=== PATIENT | female | born 1950 | race Caucasian/White ===

== ENCOUNTER 2017-02-10 06:12 | Day surgery (SDC) | payer OTHER, BC ==
[2017-02-08 12:16] VITALS: BMI 21.3
[2017-02-10] MEDS ORDERED: ROPIVACAINE HCL 0.5% 30ML VIAL ONE (06:45)
[2017-02-10] MEDS ORDERED: DEXAMETHASONE SOD PHOSPHATE/PF 10 MG/ML SDV ONE (06:45)
[2017-02-10] MEDS ORDERED: MIDAZOLAM HCL 2 MG/2 ML SINGLE DOSE VIAL ONE (06:45)
[2017-02-10] MEDS ORDERED: PROPOFOL 20 ML ONE ×2 (06:59→07:05)
[2017-02-10] MEDS ORDERED: LIDOCAINE HCL/PF 2% SDV 5ML VIAL ONE (06:59)
[2017-02-10] MEDS ORDERED: SUCCINYLCHOLINE CHLORIDE 200 MG/10 ML VIAL ONE (07:00)
[2017-02-10] MEDS ORDERED: ROCURONIUM BROMIDE 50 MG/5 ML VIAL ONE (07:00)
[2017-02-10] MEDS ORDERED: SCOPOLAMINE HYDROBROMIDE 1 PATCH PATCH.TD72 ONE (07:34)
[2017-02-10] MEDS ORDERED: ePHEDrine SULFATE 50 MG/1 ML AMPULE ONE (07:59)
[2017-02-10] MEDS ORDERED: ceFAZolin SODIUM 1 GM VIAL ONE (07:59)
[2017-02-10] MEDS ORDERED: DEXAMETHASONE SOD PHOSPHATE 4 MG/1 ML VIAL ONE ×2 (08:04→08:14)
[2017-02-10] MEDS ORDERED: ONDANSETRON 4 MG/2 ML VIAL ONE ×2 (08:04→08:14)
[2017-02-10] MEDS ORDERED: KETOROLAC TROMETHAMINE 30 MG/1 ML VIAL ONE ×2 (08:14→08:15)
[2017-02-10] MEDS ORDERED: GUM MASTIC/STORAX/MSAL/ALCOHOL 1 DRP DROPSBTL MC ONE (08:38)
[2017-02-10] MEDS ORDERED: BUPIVACAINE HCL/PF 2.5 MG/ML - 30 ML VIAL IJ ONE (08:38)
[2017-02-10] MEDS ORDERED: BUPIVACAINE HCL/PF 0.25% (2.5MG/ML) 10 ML VIAL IJ ONE (08:44)
[2017-02-10] MEDS ORDERED: LACTATED RINGERS SOLUTION 1,000 ML IV SCH (09:45)
[2017-02-10] MEDS ORDERED: ONDANSETRON 4 MG/2 ML VIAL IVPUSH PRN (10:11)
[2017-02-10] MEDS ORDERED: oxyCODONE HCL 5 MG TABLET PO PRN ×2 (10:11→10:12)
[2017-02-10] MEDS ORDERED: ACETAMINOPHEN 325 MG TABLET (FP) PO PRN (10:14)
[2017-02-10] MEDS ORDERED: HYDROmorphone HCL CARPU-JECT 1 MG/1 ML DISP.SYRIN IVPUSH ONE (10:45)
[2017-02-10] MEDS ORDERED: oxyCODONE HCL 5 MG TABLET ONE (11:47)
[2017-02-10 12:48] VITALS: PULSE 78
[2017-02-10 13:33] VITALS: BP 133/78; TEMP 98.1
--- NOTE | 2017-02-11 14:10 | OP ---
DATE OF OPERATION: 02/10/2017 PREOPERATIVE DIAGNOSIS: Left comminuted intraarticular displaced distal radius fracture. POSTOPERATIVE DIAGNOSIS: Left comminuted intraarticular displaced distal radius fracture. OPERATIVE PROCEDURE: 1. Open reduction internal fixation of left comminuted intraarticular displaced distal radius fracture with internal fixation of 3 or more fragments. 2. Left brachioradialis tenotomy. SURGEON: Cruz Martin MD DOUBLE NEEDLE OPERATOR: OC Victor ANESTHESIA: General. COMPLICATIONS: None. ESTIMATED BLOOD LOSS: Minimal. INDICATIONS FOR PROCEDURE: The patient is a 66-year-old female with the above findings, indicated for operative treatment. The risks, benefits, and alternatives were discussed with the patient at length, and proper informed consent was obtained. DESCRIPTION OF PROCEDURE: After proper identification of the patient and the correct operative site, the patient was brought to the operating room and placed supine on the operating table with prominences well padded. General anesthesia was provided by the anesthesiologist. Intravenous antibiotics were given. Time-out procedure was performed. Left upper extremity was prepped and draped in the usual sterile fashion. Well-padded tourniquet was placed with a sterile prep, Esmarch bandage to exsanguinate the left upper extremity, and tourniquet inflated to 250 mmHg. A longitudinal incision was made over the flexor carpi radialis tendon distally. The incision was taken sharply through the skin with blunt and sharp dissection through subcutaneous tissues. Flexor carpi radialis tendon along with the contents of the carpal canal was bluntly and gently retracted in an ulnarward direction for the remainder of the procedure. The pronator quadratus was divided and elevated off the distal radius. Fracture fragments were attempted to be reduced. However, the pull of the brachioradialis did not make this possible. Therefore, a subperiosteal brachioradialis tenotomy was performed, which released the radial styloid fragment and fracture fragments were able to be reduced. The fracture was then repaired using the Acumed Acu-Loc 2 distal radius plate secured distally with locking screws and proximally with nonlocking screws. This provided secure stable fixation of the fracture. Radiographs were taken to confirm proper reduction and placement of all hardware. Scapholunate interval and distal radioulnar joint were stressed and found to be stable. Wound was irrigated with copious amounts of normal saline and repaired in layers including the pronator quadratus with 4-0 Vicryl and 4-0 Monocryl. Steri-Strips and sterile dressings were placed. The patient was reversed from anesthesia and brought to the recovery room in stable condition. She tolerated the procedure well. Galileo Quarles, the assistant basketball coach, was integral throughout this procedure. This procedure could not have been performed without a skilled operative assistant basketball coach. CRUZ MARTIN M.D. PRINCE/[id number]
== END 2017-02-10 13:39 | disposition home or self-care (01) ==
LOC: FASU 06:12
PROVIDERS: ATTEND Orthopaedic Surgery Hand Surgery
PROC: 0LN60ZZ Release Left Lower Arm and Wrist Tendon, Open Approach (ICD-10-PCS; 2017-02-10)
PROC: 0PSJ04Z Reposition Left Radius with Internal Fixation Device, Open Approach (ICD-10-PCS; principal; 2017-02-10 08:04)
DX: S52.532A Colles' fracture of left radius, initial encounter for closed fracture (principal); X58.XXXA Exposure to other specified factors, initial encounter; Y93.9 Activity, unspecified; Y92.9 Unspecified place or not applicable
CPT/HCPCS: 73110-TC-LT; 94760

== ENCOUNTER 2017-02-12 18:37 | Emergency (ER) | payer OTHER, BC ==
[2017-02-12 18:46] VITALS: BP 136/84; PULSE 60; TEMP 98.4; BMI 21.3
--- NOTE | 2017-02-12 18:56 | PDOC ---
History of Present Illness - General History Source: Patient Exam Limitations: No Limitations - History of Present Illness Initial Comments: 02/12/17 19:12 The patient is a 66 year old female, with significant past medical history of left wrist surgery on 02/10/[address] Mckenzie, who presents today complaining of bleeding to the incision site of the left wrist starting approximately 30 minutes prior to arrival to the emergency room. The patient states that she felt increased pressure and sudden pain to the incision site of the wrist, then noticed blood through the cast. She is not experiencing pain at this time. She notes that her middle finger is stiff and numb. Denies any recent trauma to the wrist. Denies tingling in the fingers. Denies fever, chills, nausea, vomiting. Allergies: none reported Past medical hx: HLD, HTN, [place] (2009), CAD, CHF Orthopedist: Dr. Mckenzie <Rosio Naranjo - Last Filed: 02/12/17 19:13> <Shawn Villa - Last Filed: 02/12/17 19:59> - General Chief Complaint: Pain, Acute Stated Complaint: LEFT ARM PAIN/BLEEDING Time Seen by Provider: 02/12/17 18:46 Past History <Rosio Naranjo - Last Filed: 02/12/17 19:13> - Past Medical History Anemia: No Asthma: No Cancer: No Cardiac Disorders: Yes (Hx of [place] 2009,CAD) CVA: No COPD: No CHF: Yes Dementia: No Diabetes: No GI Disorders: No Disorders: No HTN: Yes Hypercholesterolemia: Yes Liver Disease: No Seizures: No Thyroid Disease: No - Surgical History Abdominal Surgery: No Appendectomy: Yes Cardiac Surgery: No (Angioplasty with Stents) Cholecystectomy: No Lung Surgery: No Neurologic Surgery: No Orthopedic Surgery: No - Psycho/Social/Smoking Cessation Hx Anxiety: No Suicidal Ideation: No Smoking History: Current some day smoker Number of Cigarettes Smoked Daily: 1 Information on smoking cessation initiated: Yes 'Breaking Loose' booklet given: 02/12/17 Hx Alcohol Use: No Drug/Substance Use Hx: No Substance Use Type: None Hx Substance Use Treatment: No <Shawn Villa - Last Filed: 02/12/17 19:59> - Past Medical History Allergies/Adverse Reactions: Allergies Allergy/AdvReac Type Severity Reaction Status Date / Time No Known Allergies Allergy Verified 02/12/17 18:38 Home Medications: Ambulatory Orders Aspirin [Ecotrin] 325 mg PO DAILY 02/08/17 Atorvastatin Ca [Lipitor] 80 mg PO HS 02/08/17 Bupropion HCl [Wellbutrin -] 300 mg PO DAILY 02/08/17 Clopidogrel Bisulfate [Plavix -] 75 mg PO DAILY 02/08/17 Escitalopram Oxalate [Lexapro -] 20 mg PO DAILY 02/08/17 Ezetimibe [Zetia] 10 mg PO DAILY 02/08/17 Lisinopril 10 mg PO DAILY 02/08/17 Metoprolol Succinate [Toprol Xl] 50 mg PO DAILY 02/08/17 Spironolactone [Aldactone -] 25 mg PO DAILY 02/08/17 Triazolam 0.5 mg PO HS 02/08/17 Review of Systems - Review of Systems Able to Perform ROS?: Yes Comments:: 02/12/17 19:12 CONSTITUTIONAL: Absent: fever, chills, diaphoresis, generalized weakness, malaise, loss of appetite HEENT: Absent: rhinorrhea, nasal congestion, throat pain, throat swelling, difficulty swallowing, mouth swelling, ear pain, eye pain, visual Changes CARDIOVASCULAR: Absent: chest pain, syncope, palpitations, irregular heart rate, lightheadedness , peripheral edema RESPIRATORY: Absent: cough, shortness of breath, dyspnea with exertion, orthopnea, wheezing, stridor, hemoptysis GASTROINTESTINAL: Absent: abdominal pain, abdominal distension, nausea, vomiting, diarrhea, constipation, melena, hematochezia GENITOURINARY: Absent: dysuria, frequency, urgency, hesitancy, hematuria, flank pain, genital pain MUSCULOSKELETAL: Absent: myalgia, arthralgia, joint swelling SKIN: Present: bleeding from the surgical incision site on the left wrist Absent: rash, itching, pallor HEMATOLOGIC/IMMUNOLOGIC: Absent: easy bleeding, easy bruising, lymphadenopathy, frequent infections ENDOCRINE: Absent: unexplained weight gain, unexplained weight loss, heat intolerance, cold intolerance NEUROLOGIC: Absent: headache, focal weakness or paresthesias, dizziness, unsteady gait, seizure, mental status changes, bladder or bowel incontinence PSYCHIATRIC: Absent: anxiety, depression, suicidal or homicidal ideation, hallucinations. <Rosio Naranjo - Last Filed: 02/12/17 19:13> *Physical Exam - Vital Signs Last Vital Signs Temp Pulse Resp BP Pulse Ox 98.4 F 60 18 136/84 97 02/12/17 18:38 02/12/17 18:38 02/12/17 18:38 02/12/17 18:38 02/12/17 18:38 <Rosio Naranjo - Last Filed: 02/12/17 19:13> - Vital Signs Last Vital Signs Temp Pulse Resp BP Pulse Ox 98.4 F 60 18 136/84 97 02/12/17 18:38 02/12/17 18:38 02/12/17 18:38 02/12/17 18:38 02/12/17 18:38 <Shawn Villa - Last Filed: 02/12/17 19:59> Medical Decision Making - Medical Decision Making 02/12/17 18:57 Patient had ORIF of the left wrist on Wednesday by Dr. Mckenzie. She had mild pain and numbness of the second and third finger after the operation, which persisted. 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 The pain has since subsided. The bleeding has seemed to have subsided. A volar splint wrapped with an Sylvester bandage and cast padding was removed. There was considerable dried blood on the apparatus. The wound itself was clean and dry except for a dehiscence of approximately 2 cm at the distal end of the incision, with a small clot at the opening. This was removed under sterile conditions and there was no persistent bleeding. The patient's pain, as noted above, has resolved. Most likely there was a hematoma which broke through the skin, drained, and the pressure was relieved. Awaiting x-ray to check the position of the hardware and alignment of the bone. Patient is in no discomfort , does not need any additional analgesics. 02/12/17 19:56 X-ray shows good position, alignment, and no disruption of the hardware. The patient's pain is resolved. Please resolved. A volar splint was reapplied with a sterile dressing beneath. Wrapped with an Sylvester bandage. The patient had no discomfort after splinting. There was good sensation maintained in the digits, good digit motion, no tingling and no pain in the fingers. Discharged to follow-up with Dr. Dubose that his next office hours or return to the emergency room if bleeding or pain recur. <Shawn Villa - Last Filed: 02/12/17 19:59> *DC/Admit/Observation/Transfer - Attestations Scribe Attestion: 02/12/17 19:12 Documentation prepared by JANNETH Neumann, acting as medical dir for Shawn Villa MD. <Rosio Naranjo - Last Filed: 02/12/17 19:13> - Discharge Dispostion Admit: No <Shawn Villa - Last Filed: 02/12/17 19:59> Diagnosis at time of Disposition: Traumatic hematoma of forearm Qualifiers: Encounter type: initial encounter Laterality: left Qualified Code(s): S50.12XA - Contusion of left forearm, initial encounter - Discharge Dispostion Disposition: HOME Condition at time of disposition: Improved - Patient Instructions Additional Instructions: Elevate the arm as much as possible. Pain medication as needed. If bleeding recurs and is uncontrolled, return to the emergency room. Otherwise see orthopedist for recheck as soon as possible.
== END 2017-02-12 20:13 | disposition home or self-care (01) ==
LOC: FER 18:37
PROC: 2W3FX1Z Immobilization of Left Hand using Splint (ICD-10-PCS; principal; 2017-02-12)
DX: S50.12XA Contusion of left forearm, initial encounter (principal); X58.XXXA Exposure to other specified factors, initial encounter; Y93.89 Activity, other specified; Y92.9 Unspecified place or not applicable; I10 Essential (primary) hypertension; I50.9 Heart failure, unspecified; E78.00 Pure hypercholesterolemia, unspecified; F17.210 Nicotine dependence, cigarettes, uncomplicated
CPT/HCPCS: 29125; 73110-TC-LT; 99281-25

== ENCOUNTER 2018-09-06 21:40 | Observation (INO) | payer BC, OTHER ==
--- NOTE | 2018-09-06 21:45 | PDOC ---
History of Present Illness - General History Source: Patient, Old Records Exam Limitations: No Limitations - History of Present Illness Initial Comments: 09/06/18 22:17 The patient is a 67 year old female, with a significant past medical history of CAD, [place] (2009) s/p cardiac stents (5), CHF, HTN and HLD, who presents to the ED complaining of "pain in her esophagus" after waking morning. She notes that her symptoms began today with the pain in her anterior neck. She called her PMD who prescribed her a Z-Pack, which she took 1 dose (2 pills). She notes that her pain is radiating to her neck and down her chest. She describes her chest pain as a pressure sensation. She reports that taking deep breath exacerbates the pain. She notes that when she had an CO in 2009 she didn't have pain. The patient's last stress test was 2016, which was normal. She notes that initially she had 4 stents placed and then had an additional one placed. She also reports 5 episodes of watery stool today and a mild headache that has persisted. The patient denies shortness of breath, dizziness, fever, chills, nausea, vomiting, constipation. Denies dysuria, frequency, urgency and hematuria. Allergies: None Past surgical history: Angioplasty with Stents, Appendectomy Social History: Smoker (4-5 daily). No alcohol or drug use reported PMD: Dr. Tinajero <Jorge Roca - Last Filed: 09/06/18 22:28> <Kristen Cordero - Last Filed: 09/07/18 00:06> - General Chief Complaint: Pain Stated Complaint: PAIN IN ESPOHAGUS SINCE THIS AM Time Seen by Provider: 09/06/18 21:45 Past History <Jorge Roca - Last Filed: 09/06/18 22:28> - Past Medical History Anemia: No Asthma: No Cancer: No Cardiac Disorders: Yes (Hx of CO 2010,CAD) CVA: No COPD: No CHF: Yes Dementia: No Diabetes: No GI Disorders: No Disorders: No HTN: Yes Hypercholesterolemia: Yes Liver Disease: No Seizures: No Thyroid Disease: No - Surgical History Abdominal Surgery: No Appendectomy: Yes Cardiac Surgery: No (Angioplasty with Stents) Cholecystectomy: No Lung Surgery: No Neurologic Surgery: No Orthopedic Surgery: No - Suicide/Smoking/Psychosocial Hx Smoking History: Current some day smoker Number of Cigarettes Smoked Daily: 1 'Breaking Loose' booklet given: 02/12/17 Hx Alcohol Use: No Drug/Substance Use Hx: No Substance Use Type: None Hx Substance Use Treatment: No <Kristen Cordero - Last Filed: 09/07/18 00:06> - Past Medical History Allergies/Adverse Reactions: Allergies Allergy/AdvReac Type Severity Reaction Status Date / Time No Known Allergies Allergy Verified 09/06/18 21:43 Home Medications: Ambulatory Orders Aspirin [Ecotrin] 325 mg PO DAILY 02/08/17 Atorvastatin Ca [Lipitor] 80 mg PO HS 02/08/17 Bupropion HCl [Wellbutrin -] 300 mg PO DAILY 02/08/17 Clopidogrel Bisulfate [Plavix -] 75 mg PO DAILY 02/08/17 Escitalopram Oxalate [Lexapro -] 20 mg PO DAILY 02/08/17 Ezetimibe [Zetia] 10 mg PO DAILY 02/08/17 Lisinopril 10 mg PO DAILY 02/08/17 Metoprolol Succinate [Toprol Xl] 50 mg PO DAILY 02/08/17 Spironolactone [Aldactone -] 25 mg PO DAILY 02/08/17 Triazolam 0.5 mg PO HS 02/08/17 Review of Systems - Review of Systems Able to Perform ROS?: Yes Comments:: 09/06/18 22:17 GENERAL/CONSTITUTIONAL: No fever or chills. No weakness. HEAD, EYES, EARS, NOSE AND THROAT: (+) Throat pain. No change in vision. No ear pain or discharge. GASTROINTESTINAL: (+) Diarrhea. No nausea, vomiting, or constipation. GENITOURINARY: No dysuria, frequency, or change in urination. CARDIOVASCULAR: (+) Chest pain. No shortness of breath. RESPIRATORY: No cough, wheezing, or hemoptysis. MUSCULOSKELETAL: No joint or muscle swelling or pain. No neck or back pain. SKIN: No rash NEUROLOGIC: (+) Headache. No vertigo, loss of consciousness, or change in strength/sensation. ENDOCRINE: No increased thirst. No abnormal weight change. HEMATOLOGIC/LYMPHATIC: No anemia, easy bleeding, or history of blood clots. ALLERGIC/IMMUNOLOGIC: No hives or skin allergy. <Jorge Roca - Last Filed: 09/06/18 22:28> *Physical Exam - Vital Signs Last Vital Signs Temp Pulse Resp BP Pulse Ox 98 F 66 16 132/71 100 09/06/18 22:02 09/06/18 22:02 09/06/18 22:02 09/06/18 22:02 09/06/18 22:02 - Physical Exam Comments: 09/06/18 22:17 Constitutional: Awake, alert, oriented. No acute distress. Head: Normocephalic. Atraumatic Eyes: PERRL. EOMI. Conjunctivae are not pale. ENT: Mucous membranes are moist and intact. Posterior pharynx without exudates or erythema. Uvula midline. Neck: Supple. Full ROM. No lymphadenopathy. Cardiovascular: Regular rate. Regular rhythm. S1, S2 regular. Distal pulses are 2+ and symmetric. Pulmonary/Chest: (+) Bilaterally expiratory crackles. No evidence of respiratory distress. No wheezing. Abdominal: Soft and non-distended. There is no tenderness. No rebound, guarding or rigidity. No organomegaly. No palpable masses. Good bowel sounds. Back: No CVA tenderness. Musculoskeletal: No edema. No cyanosis. No clubbing. Full range of motion in all extremities. Nocalf tenderness. Radial/pedal pulses are intact and 2+ bilaterally Skin: Skin is warm and dry. No petechiae. No purpura. Neurological: Alert and oriented to person, place, and time. Cranial nerves II -XII are grossly intact. Normal speech. Strength is grossly symmetric. No sensory deficits. Psychiatric: Good eye contact. Normal interaction, affect and behavior. <Jorge Roca - Last Filed: 09/06/18 22:28> Moderate Sedation - Procedure Monitoring Vital Signs: Procedure Monitoring Vital Signs Temperature 98 F 09/06/18 22:02 Pulse Rate 66 09/06/18 22:02 Respiratory Rate 16 09/06/18 22:02 Blood Pressure 132/71 09/06/18 22:02 O2 Sat by Pulse Oximetry (%) 100 09/06/18 22:02 <Jorge Roca - Last Filed: 09/06/18 22:28> Heart Score/ECG Review - History History: Moderately suspicious - Electrocardiogram EKG: Non specific repolarization disturbance - Age Age: >/= 65 - Risk Factors Risk Factors Heart Score: Yes Hx Hypercholesterolemia, Yes Hx Hypertension, Yes Smoking History, Yes Positive family hx of cardiac disease Based on the list above the patient has:: >/=3 risk factors or Hx atherosclerotic disease - Troponin Troponin: </= normal limit - Score Heart Score - Total: 6 <Kristen Cordero - Last Filed: 09/07/18 00:06> ED Treatment Course - LABORATORY CBC & Chemistry Diagram: 09/06/18 21:55 09/06/18 21:55 - ADDITIONAL ORDERS Additional order review: 09/06/18 21:55 RBC 3.70 MCV 98.3 H MCHC 32.3 RDW 13.1 MPV 9.0 Neutrophils % 75.9 Lymphocytes % 13.7 Monocytes % 7.8 Eosinophils % 2.1 Basophils % 0.5 <Jorge Roca - Last Filed: 09/06/18 22:28> - LABORATORY CBC & Chemistry Diagram: 09/06/18 21:55 09/06/18 21:55 <Kristen Cordero - Last Filed: 09/07/18 00:06> Medical Decision Making - Medical Decision Making Documentation has been prepared under my direction and personally reviewed by me in its entirety. I attest that this documented accurately reflects all work, treatment, procedures and medical decision making performed by me. As noted above, this 67-year-old woman with a history of CO in 2009(4 stents placed) and subsequent second episode of ACS and stent placement presents with 1 day history of anterior neck pain with radiation to the anterior chest in the last few hours(pressure sensation). Patient has been followed by cardiology group in the [place]. Pain worsens with deep breathing but no sense of shortness of breath/nausea/diaphoresis. Exam as noted. 12-lead EKG is performed and interpreted by me: Sinus bradycardia at 59 bpm; axis and intervals are normal. There is some minor depressions of ST segments in V5/V6; no other waveform abnormalities. No previous EKG tracing is available for comparison Portable chest x-ray shows mild cardiomegaly; no other significant acute process evident Patient was given 0.4 mg nitroglycerin SL. She subsequently had some improvement in her neck pain although the chest pressure continued. Troponin is less than 0.03.There is evidence of some prerenal azotemia with Bun26/Cre1.2 Because of patient's multiple risk factors for coronary artery disease/ACS, admission for further evaluation of chest pain, specifically ruling out ischemia /infarct is required. [facility] hospitalist service contacted Case discussed with of [facility] hospitalist service. Patient will be admitted to telemetry here to rule out CO Cardiology group on-call contacted: Case discussed with who will see the patient in the morning. <Kristen Cordero - Last Filed: 09/07/18 00:06> *DC/Admit/Observation/Transfer - Attestations Scribe Attestion: 09/06/18 22:18 Documentation prepared by Jorge Roca, acting as medical care manager for Kristen Cordero MD <Jorge Roca - Last Filed: 09/06/18 22:28> - Discharge Dispostion Decision to Admit order: Yes <Kristen Cordero - Last Filed: 09/07/18 00:06> Diagnosis at time of Disposition: Chest pain Qualifiers: Chest pain type: unspecified Qualified Code(s): R07.9 - Chest pain, unspecified - Discharge Dispostion Condition at time of disposition: Stable
[2018-09-06 22:10] LABS: BASO % 0.5 % (0-2.0); EOS % 2.1 % (0-4.5); HEMATOCRIT 36.4 % (32.4-45.2); HEMOGLOBIN 11.8 GM/dl (10.7-15.3); LYMPH % 13.7 % (8-40); MCH 31.8 pg (25.7-33.7); MCHC 32.3 g/dl (32.0-36.0); MEAN CELL VOLUME 98.3 fl (80-96); MONO % 7.8 % (3.8-10.2); NEUT % 75.9 % (42.8-82.8); PLATELET COUNT 194 K/MM3 (134-434); RDW 13.1 % (11.6-15.6); WHITE BLOOD COUNT 11.2 K/mm3 (4.0-10.8)
[2018-09-06 22:23] LABS: ALBUMIN 3.6 g/dl (3.5-5.0); ALK PHOS 50 U/L (32-92); ANION GAP 4 MMOL/L (8-16); BILIRUBIN,TOTAL 0.3 mg/dl (0.2-1.0); BLOOD UREA NITROGEN 26 mg/dl (7-18); CALCIUM 8.5 mg/dl (8.4-10.2); CHLORIDE 105 mmol/L (98-107); CO2 26 mmol/L (22-28); CREATININE 1.2 mg/dl (0.6-1.3); GLUCOSE,RANDOM 119 mg/dl (74-106); SGOT/AST 27 U/L (10-42); SGPT/ALT 20 U/L (10-40); SODIUM 135 mmol/L (136-145); TOT PROT 5.9 g/dl (6.4-8.3)
[2018-09-06] MEDS ORDERED: NITROGLYCERIN SUBLINGUAL 1/150 0.4 MG TAB SL ONE ×2 (22:25→23:28)
[2018-09-06] MEDS ORDERED: NITROGLYCERIN SUBLINGUAL 1/150 0.4 MG TAB ONE ×2 (22:30→23:35)
--- NOTE | 2018-09-07 00:56 | HP ---
CHIEF COMPLAINT: neck pain and chest pressure PCP: Dr. Tinajero HISTORY OF PRESENT ILLNESS: 67 year old female, with a significant past medical history of CAD, [place] (2010) s/ p cardiac stents (5), CHF, HTN and HLD, presented c/o pain in neck which started after she woke on 12/4 in the am. Shortly after, she experienced chest pressure which she rated 6/10 with no associated radiated. No alleviating factors. Minimal relief after nitroglycerin. Worse after deep breathing. Denied significant fever or chills. She usually gets around her house ok and able to perform her ADLs. ER course was notable for: (1) EKG (2) (3) Recent Travel: no PAST MEDICAL HISTORY: CAD, [place] (2010) s/p cardiac stents (5), CHF, HTN and HLD PAST SURGICAL HISTORY: none Social History: Smoking: current smoker Alcohol: no Drugs: no Family History: father with [place] at age 43 Allergies No Known Allergies Allergy (Verified 09/06/18 21:43) HOME MEDICATIONS: Home Medications Medication Instructions Recorded Aspirin [Ecotrin] 325 mg PO DAILY 02/08/17 Atorvastatin Ca [Lipitor] 80 mg PO HS 02/08/17 Bupropion HCl [Wellbutrin -] 300 mg PO DAILY 02/08/17 Clopidogrel Bisulfate [Plavix -] 75 mg PO DAILY 02/08/17 Escitalopram Oxalate [Lexapro -] 20 mg PO DAILY 02/08/17 Ezetimibe [Zetia] 10 mg PO DAILY 02/08/17 Lisinopril 10 mg PO DAILY 02/08/17 Metoprolol Succinate [Toprol Xl] 50 mg PO DAILY 02/08/17 Spironolactone [Aldactone -] 25 mg PO DAILY 02/08/17 Triazolam 0.5 mg PO HS 02/08/17 REVIEW OF SYSTEMS CONSTITUTIONAL: Absent: fever, chills, diaphoresis, generalized weakness, malaise, loss of appetite, weight change HEENT: Absent: rhinorrhea, nasal congestion, throat pain, throat swelling, difficulty swallowing, mouth swelling, ear pain, eye pain, visual changes Present- neck pain CARDIOVASCULAR: Absent: syncope, palpitations, irregular heart rate, lightheadedness, peripheral edema Present- chest pain, RESPIRATORY: Absent: cough, shortness of breath, dyspnea with exertion, orthopnea, wheezing, stridor, hemoptysis GASTROINTESTINAL: Absent: abdominal pain, abdominal distension, nausea, vomiting, diarrhea, constipation, melena, hematochezia GENITOURINARY: Absent: dysuria, frequency, urgency, hesitancy, hematuria, flank pain, genital pain MUSCULOSKELETAL: Absent: myalgia, arthralgia, joint swelling, back pain, neck pain SKIN: Absent: rash, itching, pallor HEMATOLOGIC/IMMUNOLOGIC: Absent: easy bleeding, easy bruising, lymphadenopathy, frequent infections ENDOCRINE: Absent: unexplained weight gain, unexplained weight loss, heat intolerance, cold intolerance NEUROLOGIC: Absent: focal weakness or paresthesias, dizziness, unsteady gait, seizure, mental status changes, bladder or bowel incontinence Present- headache, PSYCHIATRIC: Absent: anxiety, depression, suicidal or homicidal ideation, hallucinations. PHYSICAL EXAMINATION Vital Signs - 24 hr 09/06/18 09/06/18 22:02 23:33 Temperature 98 F Pulse Rate 66 Pulse Rate [ 68 Left] Respiratory 16 16 Rate Blood Pressure 132/71 Blood Pressure 143/83 [Right] O2 Sat by Pulse 100 97 Oximetry (%) GENERAL: Awake, alert, and fully oriented, in no acute distress. HEAD: Normal with no signs of trauma. EYES: Pupils equal, round and reactive to light, extraocular movements intact, sclera anicteric, conjunctiva clear. No lid lag. EARS, NOSE, THROAT: Ears normal, nares patent, oropharynx clear without exudates. Moist mucous membranes. NECK: Normal range of motion, supple without lymphadenopathy, JVD, or masses. LUNGS: Breath sounds equal, clear to auscultation bilaterally. No wheezes, faint bibasilar crackles noted HEART: Regular rate and rhythm, normal S1 and S2 without murmur, rub or gallop. ABDOMEN: Soft, nontender, not distended, normoactive bowel sounds, no guarding, no rebound, no masses. No hepatomegaly or splenomegaly. MUSCULOSKELETAL: Normal range of motion at all joints. No bony deformities or tenderness. No CVA tenderness. UPPER EXTREMITIES: 2+ pulses, warm, well-perfused. No cyanosis. No clubbing. No peripheral edema. LOWER EXTREMITIES: 2+ pulses, warm, well-perfused. No calf tenderness. No peripheral edema. PSYCHIATRIC: Cooperative. Good eye contact. Appropriate mood and affect. SKIN: Warm, dry, normal turgor, no rashes or lesions noted, normal capillary refill. Laboratory Results - last 24 hr 09/06/18 09/06/18 09/06/18 21:55 21:55 21:55 WBC 11.2 H RBC 3.70 Hgb 11.8 Hct 36.4 MCV 98.3 H MCH 31.8 MCHC 32.3 RDW 13.1 Plt Count 194 MPV 9.0 Absolute Neuts (auto) 8.5 Neutrophils % 75.9 Lymphocytes % 13.7 Monocytes % 7.8 Eosinophils % 2.1 Basophils % 0.5 Sodium 135 L Potassium 4.0 Chloride 105 Carbon Dioxide 26 Anion Gap 4 L BUN 26 H Creatinine 1.2 Creat Clearance w eGFR 44.54 Random Glucose 119 H Calcium 8.5 Total Bilirubin 0.3 AST 27 ALT 20 Alkaline Phosphatase 50 Creatine Kinase 53 Troponin I < 0.03 Total Protein 5.9 L Albumin 3.6 EKG reviewed- sinus bradycardia, no signs of acute ischemia cxr -reviewed ASSESSMENT/PLAN: #Chest pain in high risk patient given Hx of smoking, + past ACS, history of smoking. Might be unstable angina as patient was awoken at night with symptoms. -tele/observation -c/w ASA 325mg po daily, clopidogrel 75mgpo daily -high dose statin -bblocker -jennifer i -NGL SL prn if angina -supplemental oxygen -trend troponin -monitor and storage bin tender -smoking cessation -cardiology evaluation -consider echo #headache -naproxen #Diet -2g Na diet #dvt prophylaxis- -heparin sc Visit type - Emergency Visit Emergency Visit: Yes ED Registration Date: 09/07/18 Care time: The patient presented to the Emergency Department on the above date and was hospitalized for further evaluation of their emergent condition. - New Patient This patient is new to me today: Yes Date on this admission: 09/07/18 - Critical Care Critical Care patient: No
[2018-09-07] MEDS ORDERED: NITROGLYCERIN SUBLINGUAL 1/200 0.3 MG BTL SL PRN (00:58)
[2018-09-07] MEDS ORDERED: NAPROXEN 500 MG TABLET (FP) PO ONE (00:58)
[2018-09-07] MEDS ORDERED: NITROGLYCERIN SUBLINGUAL 1/150 0.4 MG TAB SL PRN (01:26)
[2018-09-07 01:34] VITALS: BMI 20.3
[2018-09-07 07:53] LABS: HEMATOCRIT 37.9 % (32.4-45.2); HEMOGLOBIN 12.4 GM/dl (10.7-15.3); MCH 32.1 pg (25.7-33.7); MCHC 32.7 g/dl (32.0-36.0); MEAN CELL VOLUME 97.9 fl (80-96); PLATELET COUNT 191 K/MM3 (134-434); RBC 3.87 M/mm3 (3.60-5.2); RDW 12.8 % (11.6-15.6); WHITE BLOOD COUNT 12.1 K/mm3 (4.0-10.8)
[2018-09-07 08:24] LABS: ANION GAP 10 MMOL/L (8-16); BLOOD UREA NITROGEN 20 mg/dl (7-18); CALCIUM 8.8 mg/dl (8.4-10.2); CHLORIDE 101 mmol/L (98-107); CO2 24 mmol/L (22-28); CREATININE 1.1 mg/dl (0.6-1.3); GLUCOSE,RANDOM 108 mg/dl (74-106); MAGNESIUM 1.7 mg/dL (1.8-2.4); POTASSIUM 4.1 mmol/L (3.5-5.1); SODIUM 135 mmol/L (136-145)
[2018-09-07] MEDS ORDERED: SPIRONOLACTONE 25 MG TABLET (FP) PO SCH (10:00)
[2018-09-07] MEDS ORDERED: CLOPIDOGREL BISULFATE 75 MG TABLET (FP) PO SCH (10:00)
[2018-09-07] MEDS ORDERED: ESCITALOPRAM OXALATE 20 MG TABLET (FP) PO SCH (10:00)
[2018-09-07] MEDS ORDERED: EZETIMIBE 10 MG TABLET (FP) PO SCH (10:00)
[2018-09-07] MEDS ORDERED: LISINOPRIL 10 MG TABLET (FP) PO SCH (10:00)
[2018-09-07] MEDS ORDERED: HEPARIN NA (PORCINE) 5,000 UNITS/ML 1ML VIAL SQ SCH (10:00)
[2018-09-07] MEDS ORDERED: ASPIRIN 325 MG TABLET PO SCH (10:00)
--- NOTE | 2018-09-07 10:14 | EKG ---
Test Reason : Blood Pressure : / mmHG Vent. Rate : 059 BPM Atrial Rate : 059 BPM P-R Int : 164 ms QRS Dur : 102 ms QT Int : 462 ms P-R-T Axes : 056 -08 -21 degrees QTc Int : 457 ms SINUS BRADYCARDIA POSSIBLE LEFT ATRIAL ENLARGEMENT NONSPECIFIC ST AND T WAVE ABNORMALITY ABNORMAL ECG NO PREVIOUS ECGS AVAILABLE Confirmed by WOODY FELIZ MD ([id number]) on 09/07/2018 10:14:03 AM Referred By: DR BEEBE Confirmed By:WOODY FELIZ MD
--- NOTE | 2018-09-07 10:16 | CON.CARD ---
Consult - History of Present Illness History of Present Illness: 7 year old female, with a significant past medical history of CAD, [place] (2010) s/ p cardiac stents (5), CHF, HTN and HLD, presented c/o pain in neck which started after she woke on 12/4 in the am. Shortly after, she experienced chest pressure which she rated 6/10 with no associated radiated. No alleviating factors. Minimal relief after nitroglycerin. Worse after deep breathing. Denied significant fever or chills. She usually gets around her house ok and able to perform her ADLs. - History Source History Provided By: Patient, Medical Record - Past Medical History Cardio/Vascular: Yes: CAD - Alcohol/Substance Use Hx Alcohol Use: No - Smoking History Smoking history: Current some day smoker Have you smoked in the past 12 months: Yes Aproximately how many cigarettes per day: 8 Home Medications - Allergies Allergies/Adverse Reactions: Allergies Allergy/AdvReac Type Severity Reaction Status Date / Time No Known Allergies Allergy Verified 09/06/18 21:43 - Home Medications Home Medications: Ambulatory Orders Aspirin [Ecotrin] 325 mg PO DAILY 02/08/17 Atorvastatin Ca [Lipitor] 80 mg PO HS 02/08/17 Bupropion HCl [Wellbutrin -] 300 mg PO DAILY 02/08/17 Clopidogrel Bisulfate [Plavix -] 75 mg PO DAILY 02/08/17 Escitalopram Oxalate [Lexapro -] 20 mg PO DAILY 02/08/17 Ezetimibe [Zetia] 10 mg PO DAILY 02/08/17 Lisinopril 10 mg PO DAILY 02/08/17 Metoprolol Succinate [Toprol Xl] 50 mg PO DAILY 02/08/17 Spironolactone [Aldactone -] 25 mg PO DAILY 02/08/17 Triazolam 0.5 mg PO HS 02/08/17 Review of Systems - Review of Systems Constitutional: reports: No Symptoms Eyes: reports: No Symptoms HENT: reports: No Symptoms Neck: reports: No Symptoms Cardiovascular: reports: Chest Pain Gastrointestinal: reports: No Symptoms Genitourinary: reports: No Symptoms Breasts: reports: No Symptoms Reported Musculoskeletal: reports: No Symptoms Integumentary: reports: No Symptoms Neurological: reports: No Symptoms Endocrine: reports: No Symptoms Hematology/Lymphatic: reports: No Symptoms Psychiatric: reports: No Symptoms Vital Signs: Vital Signs Temperature 99.9 F H 09/07/18 04:57 Pulse Rate 84 09/07/18 04:57 Respiratory Rate 19 09/07/18 04:57 Blood Pressure 149/80 09/07/18 04:57 O2 Sat by Pulse Oximetry (%) 99 09/07/18 01:19 Constitutional: Yes: Well Nourished, No Distress, Calm Eyes: Yes: WNL, Conjunctiva Clear, EOM Intact HENT: Yes: WNL, Atraumatic, Normocephalic Neck: Yes: WNL, Supple, Trachea Midline Respiratory: Yes: WNL, Regular, CTA Bilaterally Gastrointestinal: Yes: WNL, Normal Bowel Sounds Renal/: Yes: WNL Cardiovascular: Yes: WNL, Regular Rate and Rhythm Musculoskeletal: Yes: WNL Extremities: Yes: WNL Integumentary: Yes: WNL Neurological: Yes: WNL, Alert, Oriented ...Motor Strength: WNL Psychiatric: Yes: WNL, Alert, Oriented - Other Data Labs, Other Data: CBC, BMP 09/07/18 07:42 09/07/18 07:42 Troponin, BNP 09/06/18 09/07/18 09/07/18 21:55 07:30 07:42 Troponin I < 0.03 < 0.03 Cancelled Troponin, BNP 09/06/18 09/07/18 09/07/18 21:55 07:30 07:42 Troponin I < 0.03 < 0.03 Cancelled Imaging - Results Chest X-ray: Image Reviewed (no i/e) EKG: Image Reviewed (s andrew rep abn) Problem List - Problems (1) Chest pain Code(s): R07.9 - CHEST PAIN, UNSPECIFIED Qualifiers: Chest pain type: unspecified Qualified Code(s): R07.9 - Chest pain, unspecified (2) Traumatic hematoma of forearm Code(s): S50.10XA - CONTUSION OF UNSPECIFIED FOREARM, INITIAL ENCOUNTER Qualifiers: Encounter type: initial encounter Laterality: left Qualified Code(s): S50.12XA - Contusion of left forearm, initial encounter Assessment/Plan ashd "large [place] 2010 Multiple stents noncomplient htn hlp neck/ chest pain Plan r/o ut echo transfer to [facility]
--- NOTE | 2018-09-07 11:25 | PN ---
Progress Note, Physician History of Present Illness: 7 year old female, with a significant past medical history of CAD, [place] (2010) s/ p cardiac stents (5), CHF, HTN and HLD, presented c/o pain in neck which started after she woke on 12/4 in the am. Shortly after, she experienced chest pressure which she rated 6/10 with no associated radiated. No alleviating factors. Minimal relief after nitroglycerin. Worse after deep breathing. Denied significant fever or chills. She usually gets around her house ok and able to perform her ADLs. - Current Medication List Current Medications: Active Medications Aspirin (Asa -) 325 mg PO DAILY [facility] Last Admin: 09/07/18 09:20 Dose: 325 mg Atorvastatin Calcium (Lipitor -) 80 mg PO [facility] Bupropion HCl (Wellbutrin Xl -) 300 mg PO DAILY [facility] Last Admin: 09/07/18 09:19 Dose: 300 mg Clopidogrel Bisulfate (Plavix -) 75 mg PO DAILY [facility] Last Admin: 09/07/18 09:19 Dose: 75 mg Ezetimibe (Zetia -) 10 mg PO DAILY [facility] Last Admin: 09/07/18 09:18 Dose: 10 mg Escitalopram Oxalate (Lexapro -) 20 mg PO DAILY [facility] Last Admin: 09/07/18 09:19 Dose: 20 mg Heparin Sodium (Porcine) (Heparin -) 5,000 unit SQ BID [facility] Last Admin: 09/07/18 09:20 Dose: 5,000 unit Lisinopril (Prinivil) 10 mg PO DAILY [facility] Last Admin: 09/07/18 09:19 Dose: 10 mg Metoprolol Succinate (Toprol Xl -) 50 mg PO DAILY [facility] Last Admin: 09/07/18 09:19 Dose: 50 mg Nitroglycerin (Nitrostat -) 0.4 mg SL Q5M PRN PRN Reason: FOR CHEST PAIN Spironolactone (Aldactone -) 25 mg PO DAILY [facility] Last Admin: 09/07/18 09:20 Dose: 25 mg - Objective Vital Signs: Vital Signs Temperature 99.9 F H 09/07/18 04:57 Pulse Rate 84 09/07/18 04:57 Respiratory Rate 19 09/07/18 04:57 Blood Pressure 149/80 09/07/18 04:57 O2 Sat by Pulse Oximetry (%) 99 09/07/18 01:19 Eyes: Yes: WNL, Conjunctiva Clear, EOM Intact HENT: Yes: WNL, Atraumatic, Normocephalic Neck: Yes: WNL, Supple, Trachea Midline Cardiovascular: Yes: WNL, Regular Rate and Rhythm Respiratory: Yes: WNL, Regular, CTA Bilaterally Gastrointestinal: Yes: WNL, Normal Bowel Sounds Genitourinary: Yes: WNL Musculoskeletal: Yes: WNL Extremities: Yes: WNL Edema: No Integumentary: Yes: WNL Neurological: Yes: WNL, Alert, Oriented ...Motor Strength: WNL Psychiatric: Yes: WNL Labs: CBC, BMP 09/07/18 07:42 09/07/18 07:42 Laboratory Tests 09/06/18 09/06/18 09/06/18 21:55 21:55 21:55 WBC 11.2 H RBC 3.70 Hgb 11.8 Hct 36.4 MCV 98.3 H MCH 31.8 MCHC 32.3 RDW 13.1 Plt Count 194 MPV 9.0 Absolute Neuts (auto) 8.5 Neutrophils % 75.9 Lymphocytes % 13.7 Monocytes % 7.8 Eosinophils % 2.1 Basophils % 0.5 Sodium 135 L Potassium 4.0 Chloride 105 Carbon Dioxide 26 Anion Gap 4 L BUN 26 H Creatinine 1.2 Creat Clearance w eGFR 44.54 Random Glucose 119 H Calcium 8.5 Magnesium Total Bilirubin 0.3 AST 27 ALT 20 Alkaline Phosphatase 50 Creatine Kinase 53 Troponin I < 0.03 Total Protein 5.9 L Albumin 3.6 09/07/18 09/07/18 09/07/18 07:30 07:30 07:42 WBC 12.1 H RBC 3.87 Hgb 12.4 Hct 37.9 MCV 97.9 H MCH 32.1 MCHC 32.7 RDW 12.8 Plt Count 191 MPV 9.0 Absolute Neuts (auto) Neutrophils % Lymphocytes % Monocytes % Eosinophils % Basophils % Sodium Potassium Chloride Carbon Dioxide Anion Gap BUN Creatinine Creat Clearance w eGFR Random Glucose Calcium Magnesium Total Bilirubin AST ALT Alkaline Phosphatase Creatine Kinase 43 Troponin I < 0.03 Total Protein Albumin 09/07/18 09/07/18 07:42 07:42 WBC RBC Hgb Hct MCV MCH MCHC RDW Plt Count MPV Absolute Neuts (auto) Neutrophils % Lymphocytes % Monocytes % Eosinophils % Basophils % Sodium 135 L Potassium 4.1 Chloride 101 Carbon Dioxide 24 Anion Gap 10 BUN 20 H Creatinine 1.1 Creat Clearance w eGFR 49.25 Random Glucose 108 H Calcium 8.8 Magnesium 1.7 L Total Bilirubin AST ALT Alkaline Phosphatase Creatine Kinase Cancelled Troponin I Cancelled Total Protein Albumin Problem List - Problems (1) Chest pain Code(s): R07.9 - CHEST PAIN, UNSPECIFIED Qualifiers: Chest pain type: unspecified Qualified Code(s): R07.9 - Chest pain, unspecified (2) Traumatic hematoma of forearm Code(s): S50.10XA - CONTUSION OF UNSPECIFIED FOREARM, INITIAL ENCOUNTER Qualifiers: Encounter type: initial encounter Laterality: left Qualified Code(s): S50.12XA - Contusion of left forearm, initial encounter Assessment/Plan ashd "large [place] 2010 Multiple stents noncomplient htn hlp neck/ chest pain Plan r/o mi echo transfer to [facility]
[2018-09-07 14:15] VITALS: BP 139/70; PULSE 71; TEMP 98.8
[2018-09-07] MEDS ORDERED: TRIAZOLAM 0.5 MG PO SCH (22:00)
[2018-09-07] MEDS ORDERED: ATORVASTATIN CA 80 MG TABLET (FP) PO SCH (22:00)
== END 2018-09-07 14:10 | disposition left against medical advice (07) ==
LOC: FER 21:40 → FM/S 09-07 00:05
PROVIDERS: ADMIT Internal Medicine; ATTEND Nurse Practitioner Acute Care
PROC: 3E013GC Introduction of Other Therapeutic Substance into Subcutaneous Tissue, Percutaneous Approach (ICD-10-PCS; principal; 2018-09-07)
DX: R07.9 Chest pain, unspecified (principal); I25.10 Atherosclerotic heart disease of native coronary artery without angina pectoris; I11.0 Hypertensive heart disease with heart failure; I50.9 Heart failure, unspecified; F17.210 Nicotine dependence, cigarettes, uncomplicated; Z95.5 Presence of coronary angioplasty implant and graft; E78.5 Hyperlipidemia, unspecified; R19.7 Diarrhea, unspecified; Z82.49 Family history of ischemic heart disease and other diseases of the circulatory system
CPT/HCPCS: 36415; 71045-TC-FY; 80048; 80053; 82550; 83735; 84484; 85025; 85027; 93005; 96372; 99285-25; G0378; J1644